=== PATIENT | male | born 1955 | race Caucasian/White ===

== ENCOUNTER → 2017-05-30 | Outpatient (CLI) | payer BC ==
[~2017-05-30] MED LIST: ASPI81TA28 PO; CRG125 PO; EZET10TA63 PO; FENO1TAB PO; GLIP10TA10 PO; IMDSR30 PO; LEVO200T6 PO; LEVO25TA5 PO; METF500T5 PO; METH1TAB15 PO; MULT-506 PO; NTRSLP4 PO; PRAV80TA PO; PRLSR20 PO; QUIN1TAB4 PO; SITA100T3 PO
--- NOTE | 2017-05-30 10:00 | DIAGNOSTIC IMAGING REPORT ---
MRI OF THE BRAIN WITHOUT CONTRAST CLINICAL HISTORY: DIZZINESS AND GIDDINESS COMPARISON STUDY: 08/09/2015 FINDINGS: Sagittal T1, axial diffusion, proton density and T2 weighted axial, coronal FLAIR, and axial T1-weighted images were acquired. No intra or extra-axial mass lesions are visualized Axial diffusion-weighted images reveal no evidence of acute or subacute infarction. There is no evidence of ventricular dilatation. Proton density T2-weighted and FLAIR images reveal scattered foci of increased T2 signal within the white matter, likely on a small vessel basis. There is a new cortical/subcortical focus of increased FLAIR signal within the right parietal vertex, likely representing an interval infarct. There are no abnormal flow voids. IMPRESSION: 1. No evidence of intracranial mass on this noncontrast study 2. No evidence of acute or subacute infarction 3. Interval development of a small focus of cortical/subcortical focus of increased FLAIR signal within the right parietal vertex, likely representing an interval infarct Electronically signed by: Clive Moreland M.D. 05/30/2017 9:58 AM Dictated Date/Time: 05/30/2017 9:42 AM
== END | disposition home or self-care (01) ==
LOC: C.MRI 08:37
PROVIDERS: ATTEND Family Medicine
DX: R42 Dizziness and giddiness (principal); R90.89 Other abnormal findings on diagnostic imaging of central nervous system

== ENCOUNTER → 2017-08-29 | Outpatient (CLI) | payer BC, OTHER ==
[2017-08-29 13:01] LABS: HEMOGLOBIN A1C 10.2 % (4.5-5.6)
== END | disposition home or self-care (01) ==
LOC: C.LABMFLN 07:05
PROVIDERS: ATTEND Nurse Practitioner Family
DX: E11.65 Type 2 diabetes mellitus with hyperglycemia (principal)